=== PATIENT | female | born 1990 | race Caucasian/White ===

== ENCOUNTER → 2016-12-24 | Outpatient (CLI) | payer MEDICAID ==
--- NOTE | 2016-12-24 14:54 | WOMENS IMAGING REPORT ---
EXAM DESCRIPTION: U/S ABDOMEN TOTAL COMPLETED DATE/TIME: 12/24/2016 1:23 pm REASON FOR STUDY: R19.00 R19.00 INTRA-ABD AND PELVIC SWELLING, MASS AND LUMP, UNSP SI COMPARISON: None. TECHNIQUE: Dynamic and static grayscale images acquired of the abdomen and recorded on PACS. Additio nal selected color Doppler and spectral images recorded. LIMITATIONS: None. FINDINGS: PANCREAS: Midline pancreas unremarkable LIVER: Echogenic liver from fatty infiltration. No hepatomegaly or focal mass. No biliary ductal di latation LIVER VASCULATURE: Normal directional flow of the main portal vein and hepatic veins. GALLBLADDER: No stones. Normal wall thickness. No pericholecystic fluid. ULTRASOUND-DETECTED MARTINEZ'S SIGN: Negative. INTRAHEPATIC DUCTS AND COMMON DUCT: CBD and intrahepatic ducts normal caliber. No filling defects. INFERIOR VENA CAVA: Normal flow. AORTA: No aneurysm. RIGHT KIDNEY: Normal size. Normal echogenicity. No solid or suspicious masses. No hydronephros is. No calcifications. LEFT KIDNEY: Normal size. Normal echogenicity. No solid or suspicious masses. No hydronephrosi s. No calcifications. SPLEEN: Borderline enlarged, 14 cm in length. PERITONEAL AND PLEURAL SPACES: No ascites or effusions. OTHER: There is a fat containing umbilical hernia present IMPRESSION: Fatty liver Fat containing umbilical hernia Borderline splenomegaly 14 cm in length TECHNICAL DOCUMENTATION: JOB ID: [id number]- All Rights Reserved
== END ==
LOC: WI 11:15
PROVIDERS: ATTEND Physician Assistant
DX: R19.00 Intra-abdominal and pelvic swelling, mass and lump, unspecified site (principal); K76.0 Fatty (change of) liver, not elsewhere classified
CPT/HCPCS: 76700

== ENCOUNTER 2017-12-10 00:45 | Emergency (ER) | payer MEDICAID | END 2017-12-10 02:15 | disposition left against medical advice (07) | LOC: ER 00:45 | DX: Z53.21 Procedure and treatment not carried out due to patient leaving prior to being seen by health care provider (principal) ==

== ENCOUNTER 2017-12-11 20:54 | Emergency (ER) | payer MEDICAID ==
[2017-12-11] MEDS ORDERED: AMOXICILLIN TRIHYD 250 MG CAPSULE PO ONE (22:28)
[2017-12-11] MEDS ORDERED: LORATADINE/PSEUDOEPHEDRINE SUL 10-240 MG TAB.SR.24H PO ONE (22:29)
--- NOTE | 2017-12-11 22:31 | ER Document Report ---
ED General - General Chief Complaint: Ear Pain Stated Complaint: EAR PAIN Time Seen by Provider: 12/11/17 22:28 TRAVEL OUTSIDE OF THE [place] IN LAST 30 DAYS: No - HPI Notes: Patient is a 27-year-old female presents to the emergency department with report of nasal congestion and mild sinus pain for the last week with left ear pain and intermittent loss of hearing and popping sensation in the left ear. The patient reports no fever chills or chest pain or difficulty breathing. She reports no nausea or vomiting or significant headache. - Related Data Allergies/Adverse Reactions: No Known Allergies Allergy (Verified 12/11/17 20:55) Past Medical History - General Information source: Patient - Social History Smoking Status: Current Every Day Smoker Frequency of alcohol use: None Drug Abuse: None Lives with: Family Family History: Reviewed & Not Pertinent Pulmonary Medical History: Reports: Hx Asthma - Immunizations Hx Diphtheria, Pertussis, Tetanus Vaccination: Yes Review of Systems - Review of Systems Notes: REVIEW OF SYSTEMS: CONSTITUTIONAL : Denies fever, chills, or sweats. Denies recent illness. EENT: Denies eye or mouth pain or symptoms. Denies throat, tongue, or mouth swelling or difficulty swallowing. CARDIOVASCULAR: Denies chest pain. Denies palpitations or racing or irregular heart beat. Denies ankle edema. RESPIRATORY: Denies shortness of breath, difficulty breathing, or wheezing. GASTROINTESTINAL: Denies abdominal pain or distention. Denies nausea, vomiting , or diarrhea. Denies blood in vomitus, stools, or per rectum. Denies black, tarry stools. Denies constipation. GENITOURINARY: Denies difficulty urinating, painful urination, burning, frequency, blood in urine, or discharge. FEMALE GENITOURINARY: Denies vaginal bleeding, heavy or abnormal periods, irregular periods. Denies vaginal discharge or odor. MUSCULOSKELETAL: Denies back or neck pain or stiffness. Denies joint pain or swelling. SKIN: Denies rash, lesions or sores. HEMATOLOGIC : Denies easy bruising or bleeding. LYMPHATIC: Denies swollen, enlarged glands. NEUROLOGICAL: Denies confusion or altered mental status. Denies passing out or loss of consciousness. Denies dizziness or lightheadedness. Denies headache. Denies weakness or paralysis or loss of use of either side. Denies problems with gait or speech. Denies sensory loss, numbness, or tingling. Denies seizures. PSYCHIATRIC: Denies anxiety or stress. Denies depression, suicidal ideation, or homicidal ideation. ALL OTHER SYSTEMS REVIEWED AND NEGATIVE. Dictation was performed using [employer] voice recognition software Physical Exam - Vital signs Vitals: Temp Pulse Resp BP Pulse Ox 97.8 F 75 14 130/81 H 98 12/11/17 21:05 12/11/17 21:05 12/11/17 21:05 12/11/17 21:05 12/11/17 21:05 - Notes Notes: PHYSICAL EXAMINATION: GENERAL: Well-appearing, well-nourished and in no acute distress. HEAD: Atraumatic, normocephalic. EYES: Pupils equal round and reactive to light, extraocular movements intact, conjunctiva are normal. ENT: Nares shows coryza and nasal turbinate swelling. Patient has left otitis media with cloudy fluid mild erythema. No mastoid tenderness. Moist mucous membranes. Very mild sinus fullness, but no significant sinus tenderness. NECK: Normal range of motion, supple without lymphadenopathy LUNGS: Breath sounds clear to auscultation bilaterally and equal. No wheezes rales or rhonchi. HEART: Regular rate and rhythm without murmurs ABDOMEN: Soft, nontender, nondistended abdomen. No guarding, no rebound. No masses appreciated. Female : deferred Musculoskeletal: Normal range of motion, no pitting or edema. No cyanosis. NEUROLOGICAL: Cranial nerves grossly intact. Normal speech, normal gait. Normal sensory, motor exams PSYCH: Normal mood, normal affect. SKIN: Warm, Dry, normal turgor, no rashes or lesions noted. Course - Re-evaluation Re-evalutation: 12/11/17 22:38 Patient was given amoxicillin and Claritin-D. Patient was counseled about quitting smoking. - Vital Signs Vital signs: Temp Pulse Resp BP Pulse Ox 97.8 F 75 14 130/81 H 98 12/11/17 21:05 12/11/17 21:05 12/11/17 21:05 12/11/17 21:05 12/11/17 21:05 Discharge - Discharge Clinical Impression: Allergic rhinitis Qualifiers: Allergic rhinitis trigger: unspecified Allergic rhinitis seasonality: seasonal Qualified Code(s): J30.2 - Other seasonal allergic rhinitis Otitis media Qualifiers: Otitis media type: suppurative Chronicity: acute Laterality: left Recurrence: not specified as recurrent Spontaneous tympanic membrane rupture: without spontaneous rupture Qualified Code(s): H66.002 - Acute suppurative otitis media without spontaneous rupture of ear drum, left ear Condition: Stable Disposition: HOME, SELF-CARE Instructions: Nasal Corticosteroid Inhaler ([facility]), Non-Sedating Prescription Antihistamine ([facility]), Otitis Media ([facility]), Family Physicians / Practices Prescriptions: Amoxicillin 500 mg PO TID #30 capsule Fluticasone Propionate [Flonase Nasal [place] 50 Mcg/[place] 16 gm] 2 sprays NASL Q12 #1 inhaler Loratadine/Pseudoephedrine Sul [Claritin-D 24 Hour Tablet] 1 tab PO DAILY #30 tab.sr.24h
[2017-12-11] MEDS ORDERED: GUAIFENESIN 600 MG TABLET.SA PO ONE (22:50)
[2017-12-11] MEDS ORDERED: LORATADINE 10 MG TABLET PO ONE (22:50)
[2017-12-11 23:28] VITALS: BP 118/80
== END 2017-12-11 23:26 | disposition home or self-care (01) ==
LOC: ER 20:54
DX: H66.002 Acute suppurative otitis media without spontaneous rupture of ear drum, left ear (principal); J45.909 Unspecified asthma, uncomplicated; H92.02 Otalgia, left ear; R09.81 Nasal congestion; F17.200 Nicotine dependence, unspecified, uncomplicated; Z71.6 Tobacco abuse counseling
CPT/HCPCS: 99282; J3490 ×3

== ENCOUNTER 2018-12-20 11:56 | Emergency (ER) | payer MEDICAID ==
--- NOTE | 2018-12-20 12:18 | ER Document Report ---
ED Medical Screen (RME) - General Chief Complaint: Epigastric Pain Stated Complaint: ABDOMINAL PAIN Time Seen by Provider: 12/20/18 12:13 Primary Care Provider: KARTHIKEYAN TONY MD [Primary Care Provider] - Follow up as needed Mode of Arrival: Ambulatory Information source: Patient Notes: 28-year-old female presented to ED for abdominal pain since Wednesday with diarrhea no nausea or vomiting but is sleepy. She states she has diarrhea every time she eats or drinks. She states her last menstrual period was on December 07. She smokes half pack a day does not drink or do any drugs. Patient is alert oriented respirations regular and unlabored speaking in full sentences walks with even steady gait. I have greeted and performed a rapid initial assessment of this patient. A comprehensive ED assessment and evaluation of the patient, analysis of test results and completion of medical decision making process will be conducted by an additional ED providers. Dictation of this chart was performed using voice recognition software; therefore, there may be some unintended grammatical errors. TRAVEL OUTSIDE OF THE [place] IN LAST 30 DAYS: No - Related Data Allergies/Adverse Reactions: No Known Allergies Allergy (Verified 12/20/18 11:58) Past Medical History Pulmonary Medical History: Reports: Hx Asthma Renal/ Medical History: Denies: Hx Peritoneal Dialysis - Immunizations Hx Diphtheria, Pertussis, Tetanus Vaccination: Yes Physical Exam - Vital signs Vitals: Temp Pulse Resp BP Pulse Ox 97.9 F 87 18 133/79 H 100 12/20/18 12:01 12/20/18 12:01 12/20/18 12:01 12/20/18 12:01 12/20/18 12:01 Course - Vital Signs Vital signs: Temp Pulse Resp BP Pulse Ox 97.9 F 87 18 133/79 H 100 12/20/18 12:01 12/20/18 12:01 12/20/18 12:01 12/20/18 12:01 12/20/18 12:01 Doctor's Discharge - Discharge Referrals: KARTHIKEYAN TONY MD [Primary Care Provider] - Follow up as needed
[2018-12-20 12:59] LABS: ABSOLUTE EOSINOPHILS # (AUTO) 0.1 10^3/uL (0.0-0.6); ABSOLUTE LYMPHOCYTES (AUTO) 2.1 10^3/uL (0.5-4.7); ABSOLUTE MONOCYTES (AUTO) 0.5 10^3/uL (0.1-1.4); ABSOLUTE NEUT (AUTO) 4.7 10^3/uL (1.7-8.2); BASOPHILS % (AUTO) 0.2 % (0-2); EOSINOPHILS % (AUTO) 1.6 % (0-6); HEMATOCRIT 41.7 % (36.0-47.0); HEMOGLOBIN 13.8 g/dL (12.0-15.5); LYMPHOCYTES % (AUTO) 27.9 % (13-45); MEAN CORPUSCULAR HEMOGLOBIN 27.9 pg (27.0-33.4); MEAN CORPUSCULAR HGB CONC 33.1 g/dL (32.0-36.0); MEAN CORPUSCULAR VOLUME 84 fl (80-97); PLATELET COUNT 295 10^3/uL (150-450); RED BLOOD COUNT 4.95 10^6/uL (3.72-5.28); RED CELL DISTRIBUTION WIDTH 13.5 % (11.5-14.0); SEGMENTED NEUTROPHILS % (AUTO) 63.3 % (42-78); TOTAL CELLS COUNTED % (AUTO) 100 %; WHITE BLOOD COUNT 7.4 10^3/uL (4.0-10.5)
[2018-12-20 13:17] LABS: APPEARANCE,URINE SLIGHTLY-CLOUDY; BILIRUBIN,URINE NEGATIVE (NEGATIVE); COLOR,URINE STRAW; GLUCOSE, URINE NEGATIVE (NEGATIVE); KETONES,URINE NEGATIVE (NEGATIVE); LEUKOCYTE ESTERASE,URINE NEGATIVE (NEGATIVE); NITRITE,URINE NEGATIVE (NEGATIVE); PROTEIN,URINE NEGATIVE (NEGATIVE); URINE SPECIFIC GRAVITY 1.002; UROBILINOGEN,URINE NEGATIVE mg/dL (<2.0)
[2018-12-20 13:19] LABS: ALANINE AMINOTRANSFERASE 35 U/L (9-52); ALBUMIN 4.5 g/dL (3.5-5.0); ALKALINE PHOSPHATASE 84 U/L (38-126); ANION GAP 11 (5-19); ASPARTATE AMINO TRANSFERASE 25 U/L (14-36); BILIRUBIN,DIRECT 0.3 mg/dL (0.0-0.4); BILIRUBIN,TOTAL 0.4 mg/dL (0.2-1.3); BLOOD UREA NITROGEN 10 mg/dL (7-20); CALCIUM 9.8 mg/dL (8.4-10.2); CARBON DIOXIDE 23 mmol/L (22-30); CHLORIDE 106 mmol/L (98-107); GLUCOSE 84 mg/dL (75-110); LIPASE 149.2 U/L (23-300); POTASSIUM 4.4 mmol/L (3.6-5.0); SODIUM 139.8 mmol/L (137-145); TOTAL PROTEIN 7.2 g/dL (6.3-8.2)
[2018-12-20] MEDS ORDERED: NORMAL SALINE 1000 ML 1,000 ML IV ONE (13:41)
--- NOTE | 2018-12-20 13:47 | ER Document Report ---
ED General - General Chief Complaint: Epigastric Pain Stated Complaint: ABDOMINAL PAIN Time Seen by Provider: 12/20/18 12:13 Primary Care Provider: KARTHIKEYAN TONY MD [NO LOCAL MD] - Follow up as needed Mode of Arrival: Ambulatory Notes: Patient is a 28-year-old female presents to the emergency department for generalized abdominal pain and diarrhea since Wednesday. Patient states she has had "too many episodes of diarrhea to count." Patient is denying any dark tarry stools. Patient's denying any vomiting or nausea. Patient states she has some generalized abdominal cramping but more so left upper quadrant pain. Denying fevers. Patient denies any history of GERD. Patient states she does take amitriptyline for generalized headaches and insomnia. Last menstrual. 12/11/2018. Patient is denying any abdominal surgical history. TRAVEL OUTSIDE OF THE [place] IN LAST 30 DAYS: No - Related Data Allergies/Adverse Reactions: No Known Allergies Allergy (Verified 12/20/18 11:58) Past Medical History - General Information source: Patient - Social History Smoking Status: Current Every Day Smoker Chew tobacco use (# tins/day): No Frequency of alcohol use: None Drug Abuse: None Family History: Reviewed & Not Pertinent Patient has suicidal ideation: No Patient has homicidal ideation: No Pulmonary Medical History: Reports: Hx Asthma Renal/ Medical History: Denies: Hx Peritoneal Dialysis - Immunizations Hx Diphtheria, Pertussis, Tetanus Vaccination: Yes Review of Systems - Review of Systems Constitutional: denies: Fever EENT: No symptoms reported Cardiovascular: No symptoms reported Respiratory: No symptoms reported Gastrointestinal: See HPI Genitourinary: No symptoms reported Female Genitourinary: No symptoms reported Musculoskeletal: No symptoms reported Skin: No symptoms reported Hematologic/Lymphatic: No symptoms reported Neurological/Psychological: No symptoms reported Physical Exam - Vital signs Vitals: Temp Pulse Resp BP Pulse Ox 97.9 F 87 18 133/79 H 100 12/20/18 12:01 12/20/18 12:01 12/20/18 12:01 12/20/18 12:01 12/20/18 12:01 - Notes Notes: GENERAL: obese alert, interacts well. No acute distress. HEAD: Normocephalic, atraumatic. EYES: Pupils equal, round, and reactive to light. Extraocular movements intact. ENT: Oral mucosa moist, tongue midline. NECK: Full range of motion. Supple. Trachea midline. LUNGS: Clear to auscultation bilaterally, no wheezes, rales, or rhonchi. No respiratory distress. HEART: Regular rate and rhythm. No murmur ABDOMEN: Soft, non-tender. Non-distended. Bowel sounds present in all 4 quadrants. No McBurney's point tenderness, no Rojas sign noted. Minor left upper abdominal pain EXTREMITIES: Moves all 4 extremities spontaneously. No edema, normal radial and dorsalis pedis pulses bilaterally. No cyanosis. BACK: no cervical, thoracic, lumbar midline tenderness. No saddle anesthesia, normal distal neurovascular exam. No CVA tenderness noted bilaterally. NEUROLOGICAL: Alert and oriented x3. Normal speech. cranial nerves II through XII grossly intact PSYCH: Normal affect, normal mood. SKIN: Warm, dry, normal turgor. No rashes or lesions noted. Course - Re-evaluation Re-evalutation: 12/20/18 14:18 Laboratory 12/20/18 12/20/18 12/20/18 12:30 12:42 12:45 WBC 7.4 RBC 4.95 Hgb 13.8 Hct 41.7 MCV 84 MCH 27.9 MCHC 33.1 RDW 13.5 Plt Count 295 Seg Neutrophils % 63.3 Lymphocytes % 27.9 Monocytes % 7.0 Eosinophils % 1.6 Basophils % 0.2 Absolute Neutrophils 4.7 Absolute Lymphocytes 2.1 Absolute Monocytes 0.5 Absolute Eosinophils 0.1 Absolute Basophils 0.0 Sodium Potassium Chloride Carbon Dioxide Anion Gap BUN Creatinine Est GFR ( Amer) Est GFR (Non-Af Amer) Glucose POC Glucose 84 Calcium Total Bilirubin Direct Bilirubin Neonat Total Bilirubin Neonat Direct Bilirubin Neonat Indirect Bili AST ALT Alkaline Phosphatase Total Protein Albumin Lipase Serum HCG, Qual Urine Color STRAW Urine Appearance SLIGHTLY-CLOUDY Urine pH 6.0 Ur Specific [place] 1.002 Urine Protein NEGATIVE Urine Glucose (UA) NEGATIVE Urine Ketones NEGATIVE Urine Blood SMALL H Urine Nitrite NEGATIVE Urine Bilirubin NEGATIVE Urine Urobilinogen NEGATIVE Ur Leukocyte Esterase NEGATIVE Urine WBC (Auto) 0 Urine RBC (Auto) 0 Squamous Epi Cells Auto 1 Urine Mucus (Auto) RARE Urine Ascorbic Acid NEGATIVE 12/20/18 12/20/18 12:45 12:45 WBC RBC Hgb Hct MCV MCH MCHC RDW Plt Count Seg Neutrophils % Lymphocytes % Monocytes % Eosinophils % Basophils % Absolute Neutrophils Absolute Lymphocytes Absolute Monocytes Absolute Eosinophils Absolute Basophils Sodium 139.8 Potassium 4.4 Chloride 106 Carbon Dioxide 23 Anion Gap 11 BUN 10 Creatinine 0.60 Est GFR ( Amer) > 60 Est GFR (Non-Af Amer) > 60 Glucose 84 POC Glucose Calcium 9.8 Total Bilirubin 0.4 Direct Bilirubin 0.3 Neonat Total Bilirubin Not Reportable Neonat Direct Bilirubin Not Reportable Neonat Indirect Bili Not Reportable AST 25 ALT 35 Alkaline Phosphatase 84 Total Protein 7.2 Albumin 4.5 Lipase 149.2 Serum HCG, Qual NEGATIVE Urine Color Urine Appearance Urine pH Ur Specific [place] Urine Protein Urine Glucose (UA) Urine Ketones Urine Blood Urine Nitrite Urine Bilirubin Urine Urobilinogen Ur Leukocyte Esterase Urine WBC (Auto) Urine RBC (Auto) Squamous Epi Cells Auto Urine Mucus (Auto) Urine Ascorbic Acid Patient's labs are completely unremarkable. Patient has had no episodes of diarrhea while in the emergency department. I have ordered fluid resuscitation and Bentyl. Discussed ordering stool cultures as patient states she has had an extensive amount of diarrhea. Patient is denying any antibiotic use in the last 30 days[address] Upon placing the patient for discharge she has continued without any stool in the emergency department. Patient states she overall feels better with treatments. Stable for discharge. - Vital Signs Vital signs: Temp Pulse Resp BP Pulse Ox 97.9 F 87 18 133/79 H 100 12/20/18 12:01 12/20/18 12:01 12/20/18 12:01 12/20/18 12:01 12/20/18 12:01 - Laboratory Result Diagrams: 12/20/18 12:45 12/20/18 12:45 Laboratory results interpreted by me: 12/20/18 12:30 Urine Blood SMALL H Discharge - Discharge Clinical Impression: Diarrhea Qualifiers: Diarrhea type: unspecified type Qualified Code(s): R19.7 - Diarrhea, unspecified Condition: Stable Disposition: HOME, SELF-CARE Instructions: Diarrhea, Nonspecific ([facility]) Additional Instructions: You have been seen and treated in the emergency department for diarrhea. Please see attached to diarrhea paperwork for continued care. Prescriptions: Dicyclomine HCl [Bentyl 20 mg Tablet] 20 mg PO QID #20 tablet Forms: Return to Work Referrals: KARTHIKEYAN TONY MD [NO LOCAL MD] - Follow up as needed
[2018-12-20] MEDS ORDERED: DICYCLOMINE HCL 20 MG TABLET PO ONE (13:54)
[2018-12-20 15:01] VITALS: BP 117/76
== END 2018-12-20 15:05 | disposition home or self-care (01) ==
LOC: ER 11:56
DX: R19.7 Diarrhea, unspecified (principal); R10.13 Epigastric pain; F17.200 Nicotine dependence, unspecified, uncomplicated
CPT/HCPCS: 99284; 96360; 36415; 82962; 83690; 84703; 85025; 80053; 81001; J3490; J7030

== ENCOUNTER 2020-02-14 20:39 | Outpatient (CLI) | payer MEDICAID ==
[2020-02-14 21:33] LABS: APPEARANCE,URINE SLIGHTLY-CLOUDY; BILIRUBIN,URINE NEGATIVE (NEGATIVE); CALCIUM OXALATE CRYSTALS,URINE MANY /HPF; COLOR,URINE YELLOW; GLUCOSE, URINE NEGATIVE (NEGATIVE); KETONES,URINE TRACE mg/dL (NEGATIVE); LEUKOCYTE ESTERASE,URINE NEGATIVE (NEGATIVE); NITRITE,URINE NEGATIVE (NEGATIVE); PROTEIN,URINE NEGATIVE (NEGATIVE); UROBILINOGEN,URINE NEGATIVE mg/dL (<2.0)
[2020-02-14] MEDS ORDERED: HYDROXYZINE PAMOATE 50 MG CAPSULE PO ONE (21:54)
[2020-02-14] MEDS ORDERED: RINGERS SOLUTION,LACTATED 1,000 ML IV ONE (21:58)
[2020-02-14 22:02] LABS: URINE AMPHETAMINES SCREEN NEGATIVE; URINE BARBITURATES SCREEN NEGATIVE; URINE BENZODIAZEPINES SCREEN NEGATIVE; URINE COCAINE SCREEN NEGATIVE; URINE MARIJUANA (THC) SCREEN NEGATIVE; URINE METHADONE SCREEN NEGATIVE; URINE PHENCYCLIDINE SCREEN NEGATIVE
[2020-02-14] MEDS ORDERED: RINGERS SOLUTION,LACTATED 1,000 ML IV PRN (22:18)
--- NOTE | 2020-02-14 23:13 | RADIOLOGY REPORT (SQ) ---
EXAM DESCRIPTION: RadLex: US LIMITED CLINICAL HISTORY: 29 years Female; cervical length ; TECHNIQUE: Transabdominal limited obstetrical ultrasound was performed. COMPARISON: None. FINDINGS: Number of fetuses: Single position: Vertex measurements not performed HR: 155 BPM Anatomy: Not evaluated Amniotic fluid: GRANT 13.6 cm, adequate. Clear. Cervix: 2.8 cm long, closed Placenta: Anterior. No previa. IMPRESSION: 1. Single viable IUP. 2. Cervix 2.8 cm, closed
== END 2020-02-14 23:43 | disposition home or self-care (01) ==
LOC: LC 20:39
PROVIDERS: ATTEND Obstetrics & Gynecology
DX: O26.893 Other specified pregnancy related conditions, third trimester (principal); R10.2 Pelvic and perineal pain; Z3A.31 31 weeks gestation of pregnancy
CPT/HCPCS: 76815; 80307; 81001

== ENCOUNTER 2020-04-17 19:25 | Inpatient (IN) | payer MEDICAID ==
[2020-04-17] MEDS ORDERED: DINOPROSTONE 10 MG VAGINAL INSERT.SR PV PRN (19:49)
[2020-04-17] MEDS ORDERED: RINGERS SOLUTION,LACTATED 1,000 ML IV ONE (19:50)
[2020-04-17] MEDS ORDERED: RINGERS SOLUTION,LACTATED 1,000 ML IV PRN (19:50)
[2020-04-17 20:16] LABS: ABSOLUTE EOSINOPHILS # (AUTO) 0.1 10^3/uL (0.0-0.6); ABSOLUTE LYMPHOCYTES (AUTO) 1.8 10^3/uL (0.5-4.7); ABSOLUTE MONOCYTES (AUTO) 0.7 10^3/uL (0.1-1.4); ABSOLUTE NEUT (AUTO) 5.6 10^3/uL (1.7-8.2); BASOPHILS % (AUTO) 0.2 % (0-2); EOSINOPHILS % (AUTO) 0.6 % (0-6); HEMATOCRIT 29.4 % (36.0-47.0); HEMOGLOBIN 9.8 g/dL (12.0-15.5); LYMPHOCYTES % (AUTO) 22.2 % (13-45); MEAN CORPUSCULAR HEMOGLOBIN 25.5 pg (27.0-33.4); MEAN CORPUSCULAR HGB CONC 33.4 g/dL (32.0-36.0); MEAN CORPUSCULAR VOLUME 77 fl (80-97); MONOCYTES % (AUTO) 8.3 % (3-13); PLATELET COUNT 210 10^3/uL (150-450); RED BLOOD COUNT 3.84 10^6/uL (3.72-5.28); RED CELL DISTRIBUTION WIDTH 15.6 % (11.5-14.0); SEGMENTED NEUTROPHILS % (AUTO) 68.7 % (42-78); TOTAL CELLS COUNTED % (AUTO) 100 %; WHITE BLOOD COUNT 8.2 10^3/uL (4.0-10.5)
[2020-04-17] MEDS ORDERED: DINOPROSTONE 10 MG VAGINAL INSERT.SR ONE (20:16)
[2020-04-17 20:28] LABS: APPEARANCE,URINE CLEAR; BILIRUBIN,URINE NEGATIVE (NEGATIVE); COLOR,URINE YELLOW; GLUCOSE, URINE NEGATIVE (NEGATIVE); KETONES,URINE NEGATIVE (NEGATIVE); LEUKOCYTE ESTERASE,URINE NEGATIVE (NEGATIVE); NITRITE,URINE NEGATIVE (NEGATIVE); PROTEIN,URINE NEGATIVE (NEGATIVE); UROBILINOGEN,URINE NEGATIVE mg/dL (<2.0)
--- NOTE | 2020-04-17 22:02 | Admission Physical ---
Datetime Report Generated by CPN: 04/17/2020 22:01 CURRENT ADMISSION Chief Complaint: Scheduled Induction of Labor Indication for Induction: Post Dates Admit Impression : Term, Intrauterine ; Intact Membranes; Induction of Labor Admit Plan: Admit to Unit; Initiate Labor Induction Protocol ALLERGIES Medication Allergies: No Medication Allergies: No Known Allergies (02/14/2020) Latex: No Latex Allergies Food Allergies: none Environmental Allergies: seasonal with pollen OBSTETRICAL HISTORY EDC: 04/14/2020 00:00 : 4 Para: 2 Term: 2 : 0 SAB: 0 IAB: 1 Ectopic: 0 Livin Cesareans: 0 VBACs: 0 Multiple Births: 0 Gestational Diabetes: No Rh Sensitization: No Incompetent Cervix: No RONY: No Infertility: No ART Treatment: No Uterine Anomaly: No IUGR: No Hx Previous C/S: No Macrosomia: No Hx Loss/Stillborn: No PIH: No Hx : No Placenta Previa/Abruption: No Depression/PP Depression: No PTL/PROM: No Post Hemorrhage: No Current Procedures: Ultrasound Obstetrical History Comments: [id number], EAB G22014- 2015 G4- Current SEE RECORDS Alcohol: No Marijuana : No Cocaine: No Other Illicit Drugs: No Cigarettes: Former Smoker. [id number] MEDICAL HISTORY Diabetes: No Blood Transfusion: No Pulmonary Disease (Asthma, TB): No Breast Disease: No Hypertension: No Web Applications Developer Surgery: No Heart Disease: No Hosp/Surgery: Yes Autoimmune Disorder: No Anesthetic Complications: No Kidney Disease: No Abnormal Pap Smear: No Neuro/Epilepsy: No Psychiatric Disorders: Yes Other Medical Diseases: No Hepatitis/Liver Disease: No Significant Family History: No Varicosities/Phlebitis: No Trauma/Violence : No Thyroid Dysfunction: No Medical History Comments: anxiety on zoloft, wisdom teeth, childbirth x 2 INFECTIOUS HISTORY Gonorrhea: No Genital Herpes: No Chlamydia: No Tuberculosis: No Syphilis: No Hepatitis: No HIV/AIDS Exposure: No Rash or Viral Illness: No HPV: No PHYSICAL EXAM General: Normal HEENT: Normal Neurologic: Normal Thyroid: Normal Heart: Normal Lungs: Normal Breast: Deferred Back: Normal Abdomen: Normal Genitourinary Exam: Normal Extremities: Normal DTRs: Normal Pelvic Type: Adequate Vital Signs: Reviewed VAGINAL EXAM Dilatation: 0 Effacement: 0 Station: -2 MEMBRANES Pooling: Negative Membranes: Intact FETUS A EGA: 40.3 Monitoring: External US FHR- Baseline: 140 Variability: Moderate 6-25bpm Decelerations: None FHR Category: Category I Presentation: Vertex Admit Comment: Two previous 9 lb babies. PLANS FOR LABOR AND DELIVERY Labor and Delivery: None Pain Management: Epidural Feeding Preference: Breast Benefit of Breast Feed Discussed: Yes Circumcision: N/A INFORMED CONSENT Signature: with User ID: [email or web address]
[2020-04-18] MEDS ORDERED: LIDOCAINE 1% INJ-PF (10 MG/ML) 30 ML SDV ONE (10:01)
[2020-04-18] MEDS ORDERED: OXYTOCIN 10 UNIT/ML VIAL ONE (10:01)
[2020-04-18] MEDS ORDERED: OXYTOCIN/0.9 % SODIUM CHLORIDE 30 UNIT/500 ML RTUINJ ONE (10:01)
[2020-04-18] MEDS ORDERED: MISOPROSTOL 0.2 MG TABLET ONE (10:01)
[2020-04-18] MEDS ORDERED: PENICILLIN G-K 5 MILLION UNIT VIAL IV ONE (11:18)
[2020-04-18] MEDS ORDERED: PENICILLIN G-K 5 MILLION UNIT VIAL ONE (11:22)
[2020-04-18] MEDS: OXYTOCIN/0.9 % SODIUM CHLORIDE 30 UNIT/500 ML RTUINJ IV PRN (11:51)
[2020-04-18] MEDS: PENICILLIN G POTASSIUM 2,500,000 UNIT in DEXTROSE 5%-WATER 50 ML IV SCH (15:19)
[2020-04-18] MEDS ORDERED: PENICILLIN G-K 5 MILLION UNIT VIAL IV SCH (15:30)
[2020-04-18] MEDS ORDERED: DINOPROSTONE 10 MG VAGINAL INSERT.SR ONE (15:35)
[2020-04-19] MEDS ORDERED: PENICILLIN G-K 5 MILLION UNIT VIAL ONE (04:46)
[2020-04-19] MEDS: PENICILLIN G POTASSIUM 2,500,000 UNIT in DEXTROSE 5%-WATER 50 ML IV SCH ×5 (04:53→20:19)
[2020-04-19] MEDS: OXYTOCIN/0.9 % SODIUM CHLORIDE 30 UNIT/500 ML RTUINJ IV PRN (04:54)
[2020-04-19] MEDS ORDERED: EPHEDRINE SULFATE INJ 50 MG/1 ML AMPULE ONE (05:08)
[2020-04-19] MEDS ORDERED: FENTANYL/BUPIVACAINE/NS/PF 300 MCG/150 ML RTUINJ EPI ONE (05:09)
[2020-04-19] MEDS ORDERED: ROPIVACAINE HCL 0.2% INJ/PF (2 MG/ML) 20 ML SDV ONE ×2 (05:09→10:10)
[2020-04-19] MEDS ORDERED: NA PHOS,M-B/NA PHOS,DI-BA (ADULT) 133 ML ENEMA PR PRN (12:38)
[2020-04-19] MEDS ORDERED: MEASLES,MUMPS&RUBELLA VACC/PF 0.5 ML VIAL SUBCUT PRN (12:38)
[2020-04-19] MEDS ORDERED: PROMETHAZINE HCL 25 MG TABLET PO PRN (12:38)
[2020-04-19] MEDS ORDERED: ZOLPIDEM TARTRATE 5 MG TABLET PO PRN (12:38)
[2020-04-19] MEDS ORDERED: OXYTOCIN/0.9 % SODIUM CHLORIDE 30 UNIT/500 ML RTUINJ IV PRN (12:38)
[2020-04-19] MEDS ORDERED: ACETAMINOPHEN 650 MG SUPP.RECT PR PRN (12:38)
[2020-04-19] MEDS ORDERED: BENZOCAINE/MENTHOL AEROSOL SPRAY 56 ML TOP PRN (12:38)
[2020-04-19] MEDS ORDERED: GLYCERIN/WITCH HAZEL LEAF 1 EACH MED..WIPE TP PRN (12:38)
[2020-04-19] MEDS ORDERED: MAGNESIUM HYDROXIDE SUSP 30 ML UDCUP PO PRN (12:38)
[2020-04-19] MEDS ORDERED: DIPHENHYDRAMINE HCL 25 MG CAPSULE PO PRN (12:38)
[2020-04-19] MEDS ORDERED: PROMETHAZINE HCL 25 MG SUPP.RECT PR PRN (12:38)
[2020-04-19] MEDS ORDERED: DIBUCAINE 1% OINTMENT 28 GM TP PRN (12:38)
[2020-04-19] MEDS ORDERED: PROMETHAZINE HCL INJ 25 MG/1 ML VIAL IV PRN (12:38)
[2020-04-19] MEDS ORDERED: PSEUDOEPHEDRINE HCL 30 MG TABLET PO PRN (12:38)
[2020-04-19] MEDS ORDERED: DIPH/PERTUSS(ACELL)/TETANUS VAC/PF 0.5 ML SYR (>=10YO) IM PRN (12:38)
--- NOTE | 2020-04-19 13:57 | Delivery Summary ---
Del Sum A-C Datetime Report Generated by CPN: 04/19/2020 13:57 DELIVERY PERSONNEL DELIVERY PERSONNEL: [id number] Delivery Doctor:: Sukumar Aguilar MD Nurse Retail Shift Manager Certified:: Sabrina Rodriguez CNM Labor and Delivery Nurse:: Manjula Arellano RNbreaker mechanic Nurse:: ELLEN Song Nursery Nurse:: Manjula Garza RN Student Observers:: Natali Mann/HEAD RIGGER: Deanna Dawson, SOCIAL MEDIA CAMPAIGN MANAGER MATERNAL INFORMATION Delivery Anesthesia: Epidural Medications After Delivery: Pitocin Bolus-Please Comment; Pitocin 30 Units in 500ml NS/D5W Delivery QBL: 300 Maternal Complications: None Provider Comments: Dr Aguilar called for delivery due to FHR 60-[address] aguilar arrived and head delivered spontaneously MICHELE. 3 min shoulder dystocia. [place] and suprabubic pressure performed by RNs. woodscrew maneuver rotated baby to LOP by CNM. Dr Aguilar assisting and posterior left hand removed by CNM. Dr Aguilar delivered body. cord double clamped and cut by CNM. baby transferred to the warmer to awaiting nursery nurse. spontaneous cry after stimulation. placenta expressed intact with 3VC. no lacerations. bleeding minimal. mother and stable in l_d#7 LABOR SUMMARY EDC: 04/14/2020 00:00 No. Babies in Womb: 1 Attempted: No Labor Anesthesia: Epidural LABOR INFORMATION Reason for Induction: Post Dates Onset of Labor: 04/19/2020 05:00 Complete Dilatation: 04/19/2020 11:24 Cervical Ripening Agents: Cervidil Oxytocin: Induction Group B Beta Strep: positive Antibiotics # of Doses: 4 Antibiotics Time of Last Dose: 04/18/2020 07:59 Name of Antibiotic Given: PCN Steroids Given: None Reason Steroids Not Administered: Not Applicable MEMBRANES Membranes Rupture Method: Artificial Rupture of Membranes: 04/19/2020 08:44 Length of Rupture (hr): 2.95 Amniotic Fluid Color: Clear Amniotic Fluid Amount: Small Amniotic Fluid Odor: Normal STAGES OF LABOR Stage 1 hr: 6 Stage 1 min: 24 Stage 2 hr: 0 Stage 2 min: 17 Stage 3 hr: 0 Stage 3 min: 8 Total Time in Labor hr: 6 Total Time in Labor min: 49 VAGINAL DELIVERY Episiotomy: None Laceration #1: None Laceration Extension #1: N/A Laceration Repair: Not Applicable Sponge Count Correct: N/A Sharps Count Correct: N/A CSECTION DELIVERY Primary Indication: N/A Secondary Indication: N/A CSection Incidence: N/A Labor: N/A Elective: N/A CSection Incision: N/A BABY A INFORMATION Infant Delivery Date/Time: 04/19/2020 11:41 Method of Delivery: Vaginal Nurse Controlled Delivery: No Born in Route : No : N/A Forceps: N/A Vacuum Extraction: N/A Shoulder Dystocia : Yes SHOULDER DYSTOCIA BABY A Delivery of Head: 04/19/2020 11:38 Time Head to Delivery : 3.0 1st Intervention to Resolve: McRobert's Maneuver 2nd Intervention to Resolve: Suprapubic Pressure 3rd Intervention to Resolve: Posterior Arm Release Verify NO Fundal Pressure: No Fundal Pressure Applied Arm Under Symphisis at Del: Left PRESENTATION/POSITION BABY A Presentation: Cephalic Cephalic Presentation: Vertex Vertex Position: Left Occipital Anterior Breech Presentation: N/A PLACENTA INFORMATION BABY A Placenta Delivery Time : 04/19/2020 11:49 Placenta Method of Delivery: Spontaneous with trailing membranes Placenta Status: Delivered SCORES BABY A Heart Rate 1 min: >100 bpm Resp Effort 1 min: Good Cry Reflex Irritability 1 min: Cough or Sneeze or Pulls Away Muscle Tone 1 min: Active Motion Color 1 min: Blue/Pale Resuscitation Effort 1 min: Tactile Stimulation SCORE 1 MIN: 8 Heart Rate 5 min: >100 bpm Resp Effort 5 min: Good Cry Reflex Irritability 5 min: Cough or Sneeze or Pulls Away Muscle Tone 5 min: Active Motion Color 5 min: Body [place], Extremities Blue Resuscitation Effort 5 min: Tactile Stimulation SCORE 5 MIN: 9 INFORMATION BABY A Gestational Age at Delivery: 40.5 Gestational Status: Full Term- 39- 40.6 Weeks Outcome : Liveborn Condition : Stable Infant Sex: Female IDENTIFICATION BABY A Infant Verification Date/Time: 04/19/2020 12:03 ID Band Number: [id number] Mother's Name Verified: Yes Infant RN Verifying Infant: Gautam Arellano, RN ; Tahir Blu, RN WEIGHT/LENGTH BABY A Infant Birthweight (gm): 4730 Infant Weight (lb): 10 Infant Weight (oz): 7 Infant Length (in): 21.25 Infant Length (cm): 53.98 CORD INFORMATION BABY A No. Cord Vessels: 3 Nuchal Cord : N/A Cord Blood Taken: Yes-For Storage (Mom's Blood type +) Suction: Mouth; Nose ASSESSMENT BABY A Infant Complications: Multiple Variable Decels; Shoulder Dystocia; Other Complications- Other: terminal mec Physical Findings at Delivery: Bruising Infant Respirations: Appears Normal Skin to Skin: Yes Skin to Skin Time (min): 60 Care By: Gautam Garza RN Transferred To: Remains with Mother BABY B INFORMATION : N/A SIGNATURES Assignment: Sukumar Aguilar MD Signature: with User ID: [email or web address] : with User ID: [email or web address] : I was personally available for consultation and serving as supervising physician for the MLP.
--- NOTE | 2020-04-19 13:57 | Birth Certificate Data ---
Cert Data Datetime Report Generated by [employer]VIS: 04/19/2020 13:57 CERTIFICATE DATA 47a. Care: Yes (02/14/2020 20:43:Jayna Nicole RN) 47b. Date of First Visit: 09/04/2019 00:00 (02/14/2020 20:43:Mis Stoner RN) 47c. Date of Last Visit: 04/15/2020 00:00 (02/14/2020 20:43:Mis Stoner RN) 47d. Number of Visits: 14 (02/14/2020 20:43:Mis Stoner RN) 48a. Number of Prev Live Births: 2 (02/14/2020 20:43:Mis Stoner RN) 48b. Now Livin (02/14/2020 20:43:Jayna Nicole RN) 48c. Live Births Now : 0 (02/14/2020 20:43:QS system process) 48d. Date of Last Live : 05/07/2016 00:00 (02/14/2020 20:43:Mis Stoner RN) 48e. Losses: 1 (02/14/2020 20:43:Mis Stoner RN) 48f. Date of Last Preg Loss: 07/26/2008 00:00 (02/14/2020 20:43:Mis Stoner RN) RISK FACTORS IN THIS 49a. Diabetes: No (02/14/2020 20:43:Jayna Nicole RN) 49b. Hypertension: No (02/14/2020 20:43:Jayna Nicole RN) 49c. Previous Births: 0 (02/14/2020 20:43:Mis Stoner RN) 49d. Stillborns: No (02/14/2020 20:43:Jayna Nicole RN) 49d. IUGR: No (02/14/2020 20:43:Jayna Nicole RN) 49e. Infertility Treatment: No (02/14/2020 20:43:Jayna Nicole RN) 49f. Previous Cesareans: 0 (02/14/2020 20:43:Mis Stoner RN) Mother's Height 50b. Height Inches: 65 (02/14/2020 21:01:QS system process) Mother's Weight 51a. Pre- Weight (lbs): 229 (02/14/2020 20:43:Jayna Nicole RN) 51b. Weight at Delivery (lbs): 266 (04/18/2020 00:34:QS system process) 52. Dt Last Normal Menses Began: 07/09/2019 00:00 (02/14/2020 20:43:Mis Stoner RN) Infections Present/Treated 53a. Gonorrhea: No (02/14/2020 20:43:Jayna Nicole RN) Results this Hospital Visit : Negative (02/14/2020 20:43:Mis Stoner RN) 53b. Syphilis: No (02/14/2020 20:43:Jayna Nicole RN) Results this Hospital Visit: NONREACTIVE (04/17/2020 20:05:QS system process) 53c. Chlamydia: No (02/14/2020 20:43:Jayna Nicole RN) Results this Hospital Visit: Negative (02/14/2020 20:43:Mis Stoner RN) 53d. Hepatitis B: No (02/14/2020 20:43:Jayna Nicole RN) Results this Hospital Visit: Negative (02/14/2020 20:43:Mis Stoner RN) 53e. Hepatitis C: Negative (02/14/2020 20:43:Mis Stoner RN) 53h. Mother Tested for HBsAG: Yes (02/14/2020 20:43:Mis Stoner RN) 53i. Date Tested: 10/03/2019 00:00 (02/14/2020 20:43:Mis Stoner RN) 53j. Test Result: Negative (02/14/2020 20:43:Mis Stoner RN) Obstetric Procedures 54a, b, c. Obstetric Procedures: Ultrasound (02/14/2020 20:43:Jayna Nicole RN) Cigarette Smoking Cigarette Smoking: Former Smoker. [id number] (02/14/2020 20:43:Jayna Nicole RN) 55a. 3 Months Before Preg - Ci (02/14/2020 20:43:ELLEN Hood) 55a. Packs: 0 (02/14/2020 20:43:Cristy Yeh RN) 55b. 1st Trimester of Preg- Ci (02/14/2020 20:43:ELLEN Hood) 55b. Packs: 0 (02/14/2020 20:43:Cristy Yeh RN) 55c. 2nd Trimester of Preg- Ci (02/14/2020 20:43:ELLEN Hood) 55c. Packs: 0 (02/14/2020 20:43:Cristy Yeh RN) 55d. 3rd Trimester of Preg- Ci (02/14/2020 20:43:ELLEN Hood) 55d. Packs: 0 (02/14/2020 20:43:Cristy Yeh RN) Onset of Labor 56a. PROM >12 Hrs: 2.95 (02/14/2020 20:43:QS system process) 56b. Precipitous Labor <3 Hrs: 6 (02/14/2020 20:43:QS system process) 56c. Prolonged Labor > 20 Hrs: 6 (02/14/2020 20:43:QS system process) 57a. Induction of Labor: Induction (02/14/2020 20:43:Manjula Arellano RN) 57a. Induction of Labor: Cervidil (04/18/2020 15:42:Cristy Yeh RN) 57c. Non-Vertex Presentation A: Vertex (02/14/2020 20:43:Krissy Mcgrath RN) 57d. Steroids - Lung Mat: None (02/14/2020 20:43:Manjula Arellano RN) 57d. Steroids - Lung Mat: Not Applicable (02/14/2020 20:43:Manjula Arellano RN) 57e. Antibiotics During Labor: 04/18/2020 07:59 (02/14/2020 20:43:Manjula Arellano RN) 57f. Mat [place] or Temp >100.4: 98.6 (02/14/2020 20:43:Manjula Arellano RN) 57g. Moderate/Heavy Meconium: Clear (04/19/2020 09:18:Manjula Arellano RN) 57h. Intolerance of Labor: N/A (02/14/2020 20:43:Manjula Arellano RN) : N/A (02/14/2020 20:43:Manjula Arellano RN) 57i. Epidural/Spinal Anesthesia: Epidural (02/14/2020 20:43:Manjula Arellano RN) Method of Delivery 58a. Forceps - Unsuccessful A: N/A (02/14/2020 20:43:Krissy Mcgrath RN) 58b. Vacuum - Unsuccessful A: N/A (02/14/2020 20:43:Krissy Mcgrath RN) 58c. Presentation at 58c. Presentation at - A : Vertex (02/14/2020 20:43:Krissy Mcgrath RN) 58c. Presentation at - A : N/A (02/14/2020 20:43:Krissy Mcgrath RN) 58c. Presentation at - A : Cephalic (02/14/2020 20:43:Krissy Mcgrath RN) Final Route and Method of Del 58d. Baby A Route/Delivery: Vaginal (04/19/2020 11:41:Manjula Arellano RN) 58e. Trial of Labor Attempted: No (02/14/2020 20:43:Manjula Arellano RN) 58e. Trial of Labor Attempted A: N/A (02/14/2020 20:43:Manjula Arellano RN) 58e. Trial of Labor Attempted B: N/A (02/14/2020 20:43:Manjula Arellano RN) Maternal Morbidity 59b. 3rd or 4th Degree Lacs: None (02/14/2020 20:43:Sabrina Rodriguez CNM ) Birthweight Baby A: 4730 (02/14/2020 20:43:Manjula Arellano RN) 60a. Pounds : 10 (02/14/2020 20:43:QS system process) 60b. Ounces: 7 (02/14/2020 20:43:QS system process) 61. GA at Delivery Baby A: 40.5 (02/14/2020 20:43:Krissy Mcgrath RN) : Full Term- 39- 40.6 Weeks (02/14/2020 20:43:QS system process) 62a. 5 Minute Baby A: 9 (02/14/2020 20:43:QS system process)
[2020-04-19] MEDS ORDERED: IBUPROFEN 800 MG TABLET ONE (14:27)
[2020-04-19] MEDS: IBUPROFEN 800 MG TABLET PO SCH ×2 (14:28→21:21)
[2020-04-19] MEDS: DOCUSATE SODIUM 100 MG CAPSULE PO SCH (18:55)
[2020-04-19] MEDS: FERROUS SULFATE 325 MG TABLET PO SCH (18:55)
[2020-04-19] MEDS: ACETAMINOPHEN WITH CODEINE #3 TABLET PO PRN ×2 (18:55→23:38)
[2020-04-19] MEDS: FAMOTIDINE 20 MG TABLET PO SCH (21:21)
[2020-04-20] MEDS: IBUPROFEN 800 MG TABLET PO SCH ×3 (05:45→21:09)
[2020-04-20 08:04] LABS: HEMATOCRIT 27.7 % (36.0-47.0); HEMOGLOBIN 9.1 g/dL (12.0-15.5); MEAN CORPUSCULAR HEMOGLOBIN 25.6 pg (27.0-33.4); MEAN CORPUSCULAR HGB CONC 32.9 g/dL (32.0-36.0); MEAN CORPUSCULAR VOLUME 78 fl (80-97); PLATELET COUNT 184 10^3/uL (150-450); RED BLOOD COUNT 3.55 10^6/uL (3.72-5.28); RED CELL DISTRIBUTION WIDTH 16.1 % (11.5-14.0); WHITE BLOOD COUNT 8.5 10^3/uL (4.0-10.5)
[2020-04-20] MEDS: ACETAMINOPHEN WITH CODEINE #3 TABLET PO PRN ×3 (10:09→19:26)
[2020-04-20] MEDS: FERROUS SULFATE 325 MG TABLET PO SCH ×2 (10:09→18:00)
[2020-04-20] MEDS: PRENATAL VITAMIN W DHA CAPSULE PO SCH (10:09)
[2020-04-20] MEDS: SENNOSIDES/DOCUSATE 8.6-50 MG 1 EACH TABLET PO SCH (10:09)
[2020-04-20] MEDS: FAMOTIDINE 20 MG TABLET PO SCH ×2 (10:09→21:05)
[2020-04-20] MEDS: DOCUSATE SODIUM 100 MG CAPSULE PO SCH ×2 (10:10→18:00)
--- NOTE | 2020-04-20 10:33 | PDOC PROGRESS REPORT ---
Subjective-OB Progress Note for:: 04/20/20 Subjective: reports bleeding slowing, pain controlled with current meds. denies needs Physical Exam (OB) Vital Signs: Temp Pulse Resp BP Pulse Ox 97.7 F 69 18 124/73 100 04/20/20 07:05 04/20/20 07:05 04/20/20 07:05 04/20/20 07:05 04/20/20 07:05 Intake & Output 04/19/20 04/20/20 04/21/20 06:59 06:59 06:59 Intake Total 1000 Balance 1000 - Maternal Morbidity 59. Maternal Morbidity (serious complications experinced by the mother associated with labor and delivery: None of the above - Abdomen Description: Soft Hernia Present: No Fundal Description: Firm, Midline Fundal Height: u/u - u/2 - Abdominal Distension: No distension Tenderness: Nontender - Extremities Lower extremities: Eleni's sign - neg Calf: Normal, Nontender Objective-Diagnostic Laboratory: 04/20/20 07:37 04/20/20 07:37 WBC 8.5 RBC 3.55 L Hgb 9.1 L Hct 27.7 L MCV 78 L MCH 25.6 L MCHC 32.9 RDW 16.1 H Plt Count 184 Assessment and Plan(PN) - Assessment and Plan (1) Shoulder dystocia, delivered Is this a current diagnosis for this admission?: Yes (2) Vaginal delivery Is this a current diagnosis for this admission?: Yes - Time Spent with Patient Time with patient: Less than 15 minutes - Disposition Anticipated Discharge Disposition: Home, Self Care Anticipated Discharge Timeframe: within 24 hours
[2020-04-21] MEDS: ACETAMINOPHEN WITH CODEINE #3 TABLET PO PRN ×3 (00:21→09:29)
[2020-04-21] MEDS: IBUPROFEN 800 MG TABLET PO SCH (05:17)
[2020-04-21] MEDS: SENNOSIDES/DOCUSATE 8.6-50 MG 1 EACH TABLET PO SCH (09:29)
[2020-04-21] MEDS: DOCUSATE SODIUM 100 MG CAPSULE PO SCH (09:29)
[2020-04-21] MEDS: FERROUS SULFATE 325 MG TABLET PO SCH (09:29)
[2020-04-21] MEDS: FAMOTIDINE 20 MG TABLET PO SCH (09:30)
[2020-04-21] MEDS: PRENATAL VITAMIN W DHA CAPSULE PO SCH (09:31)
--- NOTE | 2020-04-21 10:21 | PDOC DISCHARGE SUMMARY ---
Impression - Admit/DC Date/PCP Admission Date/Primary Care Provider: 04/17/20 19:25 ROMULO ORTIZ PA-C Discharge Date: 04/21/20 - Discharge Diagnosis (1) Shoulder dystocia, delivered Is this a current diagnosis for this admission?: Yes (2) Vaginal delivery Is this a current diagnosis for this admission?: Yes - Additional Information Discharge Diet: Regular Discharge Activity: Balance Activity w/Rest, Pelvic Rest Referrals: ROMULO ORTIZ PA-C [Primary Care Provider] - Home Medications: Prenat 115/Iron Fum/Folic/Dss [ 19 Tablet] 1 tab PO DAILY 02/14/20 Sertraline HCl [Zoloft 50 mg Tablet] 1 tab PO DAILY 02/14/20 Hospital Course 59. Maternal Morbidity (serious complications experinced by the mother associated with labor and delivery: None of the above Results Laboratory Results: WBC 8.5 10^3/uL (4.0-10.5) 04/20/20 07:37 RBC 3.55 10^6/uL (3.72-5.28) L 04/20/20 07:37 Hgb 9.1 g/dL (12.0-15.5) L 04/20/20 07:37 Hct 27.7 % (36.0-47.0) L 04/20/20 07:37 MCV 78 fl (80-97) L 04/20/20 07:37 MCH 25.6 pg (27.0-33.4) L 04/20/20 07:37 MCHC 32.9 g/dL (32.0-36.0) 04/20/20 07:37 RDW 16.1 % (11.5-14.0) H 04/20/20 07:37 Plt Count 184 10^3/uL (150-450) 04/20/20 07:37 Lymph % (Auto) 22.2 % (13-45) 04/17/20 20:05 [place] % (Auto) 8.3 % (3-13) 04/17/20 20:05 Eos % (Auto) 0.6 % (0-6) 04/17/20 20:05 Baso % (Auto) 0.2 % (0-2) 04/17/20 20:05 Absolute Neuts (auto) 5.6 10^3/uL (1.7-8.2) 04/17/20 20:05 Absolute Lymphs (auto) 1.8 10^3/uL (0.5-4.7) 04/17/20 20:05 Absolute Monos (auto) 0.7 10^3/uL (0.1-1.4) 04/17/20 20:05 Absolute Eos (auto) 0.1 10^3/uL (0.0-0.6) 04/17/20 20:05 Absolute Basos (auto) 0.0 10^3/uL (0.0-0.2) 04/17/20 20:05 Seg Neutrophils % 68.7 % (42-78) 04/17/20 20:05 Urine Color YELLOW 04/17/20 19:30 Urine Appearance CLEAR 04/17/20 19:30 Urine pH 6.0 (5.0-9.0) 04/17/20 19:30 Ur Specific [place] 1.010 04/17/20 19:30 Urine Protein NEGATIVE mg/dL (NEGATIVE) 04/17/20 19:30 Urine Glucose (UA) NEGATIVE mg/dL (NEGATIVE) 04/17/20 19:30 Urine Ketones NEGATIVE mg/dL (NEGATIVE) 04/17/20 19:30 Urine Blood NEGATIVE (NEGATIVE) 04/17/20 19:30 Urine Nitrite NEGATIVE (NEGATIVE) 04/17/20 19:30 Urine Bilirubin NEGATIVE (NEGATIVE) 04/17/20 19:30 Urine Urobilinogen NEGATIVE mg/dL (<2.0) 04/17/20 19:30 Ur Leukocyte Esterase NEGATIVE (NEGATIVE) 04/17/20 19:30 Urine Ascorbic Acid NEGATIVE (NEGATIVE) 04/17/20 19:30 RPR NONREACTIVE (NONREACTIVE) 04/17/20 20:05 Blood Type A POSITIVE 04/17/20 20:05 Antibody Screen NEGATIVE 04/17/20 20:05 Plan Plan of Treatment: follow up in 4 weeks at [facility] for post check
[2020-04-21 11:38] VITALS: BP 116/59
== END 2020-04-21 12:45 | disposition home or self-care (01) | DRG 807 ==
LOC: LR 19:25 → 2S 04-19 14:29
PROVIDERS: ADMIT Obstetrics & Gynecology; ATTEND Obstetrics & Gynecology
PROC: 10E0XZZ Delivery of Products of Conception, External Approach (ICD-10-PCS; principal; 2020-04-19)
PROC: 3E033VJ Introduction of Other Hormone into Peripheral Vein, Percutaneous Approach (ICD-10-PCS; 2020-04-19)
PROC: 10907ZC Drainage of Amniotic Fluid, Therapeutic from Products of Conception, Via Natural or Artificial Opening (ICD-10-PCS; 2020-04-19)
PROC: 3E0234Z Introduction of Serum, Toxoid and Vaccine into Muscle, Percutaneous Approach (ICD-10-PCS; 2020-04-21)
DX: O48.0 Post-term pregnancy (principal); Z37.0 Single live birth; O66.0 Obstructed labor due to shoulder dystocia; O99.824 Streptococcus B carrier state complicating childbirth; O99.344 Other mental disorders complicating childbirth; F41.9 Anxiety disorder, unspecified; O76 Abnormality in fetal heart rate and rhythm complicating labor and delivery; Z23 Encounter for immunization; Z87.891 Personal history of nicotine dependence; Z3A.40 40 weeks gestation of pregnancy
CPT/HCPCS: 1967; 36415; 81005; 85025; 85027; 86592; 86850; 86900; 86901; 90707; J2540; J2590; J2795; J3010; J3490; J7060